=== PATIENT | male | born 1990 | race Two or more races ===

== ENCOUNTER 2023-08-29 18:22 | Emergency (ER) | payer SELFPAY ==
[2023-08-29] MEDS ORDERED: Morphine 4 MG/ML Syringe IM STA ×2 (20:16→20:18)
[2023-08-29] MEDS ORDERED: Ondansetron 4 MG Tab.DIS PO STA (20:16)
[2023-08-29] MEDS ORDERED: Acetaminophen 500 MG Tab PO STA (20:17)
[2023-08-29] MEDS ORDERED: Ibuprofen 800 MG Tab PO STA (20:17)
[2023-08-29] MEDS ORDERED: Sodium Chloride 0.9% 10 ML Syringe FLUSH PRN (20:28)
[2023-08-29] MEDS ORDERED: Sodium Chloride 0.9% 2.5 ML Syringe FLUSH PRN (20:28)
[2023-08-29] MEDS ORDERED: Morphine 4 MG/ML Syringe IVPUSH STA (20:29)
[2023-08-29] MEDS ORDERED: ceFAZolin 2 GM in Sodium Chloride 0.9% 50 ML IV STA (20:29)
[2023-08-29] MEDS ORDERED: Ondansetron 4 MG/2 ML SDV IVPUSH STA (21:08)
[2023-08-29] MEDS ORDERED: Ondansetron 4 MG/2 ML SDV ONE (21:09)
[2023-08-29] MEDS ORDERED: Ondansetron 4 MG/2 ML SDV IVPUSH ONE (21:12)
[2023-08-29] MEDS ORDERED: Lidocaine 1% 5 ML VIAL INJECT STA (21:52)
[2023-08-29] MEDS ORDERED: oxyCODONE 5 MG Tab PO STA (22:21)
== END 2023-08-29 23:00 | disposition home or self-care (01) ==
LOC: MW.ED 18:22
DX: S62.34 Nondisplaced fracture of base of other metacarpal bone (principal); W20.8XXA Other cause of strike by thrown, projected or falling object, initial encounter; Y92.69 Other specified industrial and construction area as the place of occurrence of the external cause
CPT/HCPCS: 12002; 73130; 96365; 96375; 99283; A9270; J0690; J2270; J2405; J3490